=== PATIENT | female | born 1955 | race American Indian/Alaskan Native ===

== ENCOUNTER 2018-03-26 10:53 | Day surgery (SDC) | payer MEDICAID ==
[~2018-03-26 10:53] MED LIST: ANCEF/STERILE WATER 2 GM/20 ML 2 GM/20 ML SYRINGE IV NR; NACL 0.9% 1000 ML 1,000 ML IV SCH
[2018-03-26 11:41] LABS: Basophils # (Auto) 0.1 K/mm3 (0.0-0.1); Basophils % (Auto) 0.7 % (0.0-1.8); Eosinophils # (Auto) 0.1 K/mm3 (0.0-0.4); Eosinophils % (Auto) 1.1 % (0.0-4.3); Hematocrit 40.3 % (30.3-42.9); Hemoglobin 13.4 gm/dl (10.1-14.3); Lymphocytes # (Auto) 0.9 K/mm3 (1.2-5.4); Lymphocytes % (Auto) 11.2 % (13.4-35.0); Mean Corpuscular HGB Conc 33 % (30-34); Mean Corpuscular Hemoglobin 31 pg (28-32); Mean Corpuscular Volume 94 fl (79-97); Monocytes # (Auto) 0.3 K/mm3 (0.0-0.8); Monocytes % (Auto) 3.7 % (0.0-7.3); Platelet Count 162 K/mm3 (140-440); Red Blood Count 4.28 M/mm3 (3.65-5.03); Red Cell Distribution Width 12.3 % (13.2-15.2)
[2018-03-26 11:56] LABS: INR 1.08 (0.87-1.13); Partial Thromboplastin Time 25.8 Sec. (24.2-36.6)
[2018-03-26 11:57] LABS: BUN/Creatinine Ratio 16; Blood Urea Nitrogen 11 mg/dL (7-17); Calcium 9.2 mg/dL (8.4-10.2); Hemolysis Index 4
[2018-03-26] MEDS ORDERED: HEPARIN/NS 5000 UNIT/500ML(CATH LAB) 1,000 ML IR ONE (15:50)
[2018-03-26] MEDS ORDERED: NITROGLYCERIN SYRINGE 3 ML ONE (15:50)
[2018-03-26] MEDS ORDERED: CALAN ONE (15:50)
[2018-03-26] MEDS ORDERED: XYLOCAINE 2% INFILTRATI ONE (15:50)
[2018-03-26] MEDS: SUBLIMAZE ONE ×2 (16:25→17:09)
[2018-03-26] MEDS: VERSED ONE ×2 (16:25→17:11)
[2018-03-26] MEDS: HEPARIN 10,000 UNITS/10 ML ONE ×2 (16:30→17:10)
[2018-03-26] MEDS ORDERED: VERSED ONE (17:16)
[2018-03-26] MEDS ORDERED: SUBLIMAZE ONE (17:16)
--- NOTE | 2018-03-26 17:58 | Short Stay Summary ---
Short Stay Documentation Date of service: 03/26/18 Narrative H&P: See H&P - History H&P: obtained from office - Allergies and Medications Current Medications: Allergies No Known Allergies Allergy (Verified 03/26/18 11:19) Home Medications Medication Instructions Recorded Confirmed Last Taken Type Albuterol Sulfate [Proventil Hfa] 2 puff INHALATION QID PRN 03/26/18 03/26/18 History 2 Atorvastatin [Lipitor] 40 mg PO DAILY 03/26/18 03/26/18 03/25/18 History 40mg Gabapentin [Neurontin] 300 mg PO TID 03/26/18 03/26/18 03/25/18 History 300mg Plavix 75 mg PO DAILY 03/26/18 03/26/18 03/25/18 History 75mg Tiotropium [place] [Spiriva] 2 puff INHALATION DAILY 03/26/18 03/26/18 03/25/18 History 2 amLODIPine [Norvasc] 5 mg PO DAILY 03/26/18 03/26/18 03/26/18 History 5mg predniSONE [Prednisone] 5 mg PO DAILY 03/26/18 03/26/18 03/26/18 History 5mg Active Medications Cefazolin Sodium (Ancef/Sterile Water 2 Gm/20 Ml) 2 gm in 20 mls @ 80 mls/hr IV PREOP NR; Protocol Stop: 03/26/18 23:59 Sodium Chloride (Nacl 0.9% 1000 Ml) 1,000 mls @ 42 mls/hr IV DIRECT ARLET Last Admin: 03/26/18 12:20 Dose: 42 mls/hr - Brief post op/procedure progress note Date of procedure: 03/26/18 Pre-op diagnosis: Symptomatic Chronic Mesenteric Ischemia Post-op diagnosis: same Procedure: 1. Ultrasound-Guided Access Left Radial Artery 2. Diagnostic Aortogram (No Previous Films for Comparison) 3. Selective Catheterization with Arteriogram of Hepatic Artery 4. Selective Catheterization with Arteriogram of Superior Mesenteric Artery 5. Angioplasty Stent of Hepatic Artery with A 5 x 40 Balloon and 5 x 5 cm Viabahn Stent Graft 6. Radiologic Supervision and Interpretation Anesthesia: local, other (i.v. Sedation) Surgeon: RICH SMITH Estimated blood loss: minimal Pathology: none Condition: stable - Disposition Condition at discharge: Good Disposition: DC-01 TO HOME OR SELFCARE Short Stay Discharge Plan Wound: remove dressing (24 Hours) Follow up with: RICH SMITH MD [Staff Physician] - 14 Days Prescriptions: HYDROcodone/APAP 7.5-325 [[place] 7.5/325] 1 each PO Q6HR PRN #40 tablet PRN Reason: Pain
--- NOTE | 2018-03-26 18:05 | Operative Report ---
Operative Report Operative Report: Date of Procedure: 03/26/2018 Pre-operative Diagnosis: Symptomatic Chronic Mesenteric Ischemia Post-operative Diagnosis: Same Procedure(s): 1. Ultrasound-Guided Access Left Radial Artery 2. Diagnostic Aortogram (No Previous Films for Comparison) 3. Selective Catheterization with Arteriogram of Hepatic Artery 4. Selective Catheterization with Arteriogram of Superior Mesenteric Artery 5. Angioplasty Stent of Hepatic Artery with A 5 x 40 Balloon and 5 x 5 cm Viabahn Stent Graft 6. Radiologic Supervision and Interpretation Surgeon: Ajit Lozano M.D. Requirements Engineer: [] Anesthesia: [] EBL: [] Counts: [] Complications: [] Condition: [] Findings: [] Specimen: [] Indication: [] Description of Procedure: []
[2018-03-26 18:39] VITALS: BP 122/60
== END 2018-03-26 19:03 | disposition home or self-care (01) ==
LOC: CATHLABREC 10:53
PROVIDERS: ATTEND Surgery Vascular Surgery
DX: K55.1 Chronic vascular disorders of intestine (principal); I10 Essential (primary) hypertension; M32.14 Glomerular disease in systemic lupus erythematosus; J44.9 Chronic obstructive pulmonary disease, unspecified; M06.9 Rheumatoid arthritis, unspecified; F17.200 Nicotine dependence, unspecified, uncomplicated; Z86.2 Personal history of diseases of the blood and blood-forming organs and certain disorders involving the immune mechanism; Z83.3 Family history of diabetes mellitus; Z82.61 Family history of arthritis; Z79.899 Other long term (current) drug therapy; Z79.01 Long term (current) use of anticoagulants; Z84.1 Family history of disorders of kidney and ureter
CPT/HCPCS: 36245; 36415; 37236; 75726; 80048; 85025; 85610; 85730; 99156; 99157; C1725; C1769; C1887; C1894; J1644; J2250; J3010; J7030; Q9967